=== PATIENT | female | born 1995 | race American Indian/Alaskan Native ===

== ENCOUNTER 2020-12-26 10:21 | Outpatient (CLI) | payer BC ==
[2020-12-26 11:02] LABS: Basophils # (Auto) 0.1 K/mm3 (0.0-0.1); Eosinophils # (Auto) 0.5 K/mm3 (0.0-0.4); Eosinophils % (Auto) 4.1 % (0.0-4.3); Hematocrit 37.4 % (30.3-42.9); Hemoglobin 12.9 gm/dl (10.1-14.3); Lymphocytes # (Auto) 2.2 K/mm3 (1.2-5.4); Lymphocytes % (Auto) 17.8 % (13.4-35.0); Mean Corpuscular HGB Conc 35 % (30-34); Mean Corpuscular Volume 92 fl (79-97); Monocytes # (Auto) 0.8 K/mm3 (0.0-0.8); Monocytes % (Auto) 6.1 % (0.0-7.3); Platelet Count 311 K/mm3 (140-440); Red Blood Count 4.09 M/mm3 (3.65-5.03); Red Cell Distribution Width 12.3 % (13.2-15.2)
[2020-12-26 13:24] LABS: Hepatitis C Virus Antibody Non-Reactive (NonReactive)
== END 2020-12-26 10:22 | disposition home or self-care (01) ==
LOC: LAB 10:21
PROVIDERS: ATTEND Obstetrics & Gynecology
DX: Z34.02 Encounter for supervision of normal first pregnancy, second trimester (principal); Z3A.13 13 weeks gestation of pregnancy
CPT/HCPCS: 36415; 85025; 86592; 86689; 86706; 86762; 86803; 86900; 86901

== ENCOUNTER 2021-06-03 14:52 | Outpatient (CLI) | payer BC, OTHER ==
[2021-06-15 00:13] LABS: HIV-1 Antibody Differentiation SEE SCANNED RESULT; HIV-2 Antibody Differentiation SEE SCANNED RESULT
== END 2021-06-03 14:53 | disposition home or self-care (01) ==
LOC: LAB 14:52
PROVIDERS: ATTEND Advanced Practice Midwife
DX: Z34.03 Encounter for supervision of normal first pregnancy, third trimester (principal); Z3A.36 36 weeks gestation of pregnancy
CPT/HCPCS: 36415; 86592; 86689; 87116; 87591

== ENCOUNTER 2021-06-22 08:55 | Inpatient (IN) | payer BC ==
[2021-06-22] MEDS ORDERED: CARBOPROST TROMETHAMINE 250 MCG/1 ML INJ IM PRN (10:04)
[2021-06-22] MEDS ORDERED: LACTATED RINGERS 1,000 ML ONE (10:04)
[2021-06-22] MEDS ORDERED: TERBUTALINE 1 MG/1 ML INJ SUB-Q PRN (10:04)
[2021-06-22] MEDS ORDERED: NALOXONE 0.4 MG/1 ML INJ IV PRN ×2 (10:04→14:54)
[2021-06-22] MEDS ORDERED: ACETAMINOPHEN 325 MG TAB PO PRN (10:04)
[2021-06-22] MEDS ORDERED: METHYLERGONOVINE MALEATE 0.2 MG/ML VIAL IM PRN (10:04)
[2021-06-22] MEDS ORDERED: NalbUPHINE 10 MG/1 ML INJ IV PRN (10:04)
[2021-06-22] MEDS ORDERED: ONDANSETRON 4 MG/2 ML INJ IV PRN ×2 (10:04→14:54)
[2021-06-22] MEDS ORDERED: PROMETHAZINE 25 MG TAB PO PRN (10:04)
[2021-06-22] MEDS ORDERED: LOPERAMIDE 2 MG CAP PO PRN (10:04)
[2021-06-22] MEDS ORDERED: MINERAL OIL 30 ML ORAL LIQD PO PRN (10:04)
[2021-06-22] MEDS ORDERED: OXYTOCIN 10 UNIT/1 ML INJ IM PRN (10:04)
[2021-06-22] MEDS ORDERED: miSOPROStol 200 MCG TAB PR PRN (10:04)
[2021-06-22] MEDS ORDERED: ePHEDrine SULFATE 50 MG/1 ML INJ IV PRN (10:04)
--- NOTE | 2021-06-22 10:16 | History and Physical Report ---
History of Present Illness Date of examination: 06/22/21 Date of admission: 06/22/21 08:55 Chief complaint: "They told me I was asymmetric IUGR and to come in this morning" History of present illness: EDC Confirmation: 06/29/2021 Past History : 1 Term Births: 0 Premature Births: 0 Living Children: 0 Para: 0 Mult. Births: 0 Prev : 0 Prev. attempt? 0 Aborta: 0 Elect. Ab: 0 Spont. Ab: 0 Ectopics: 0 Risk Factors: Smoked Tobacco Use: Never smoker Smokeless Tobacco Use: Never Passive smoke exposure: no Drug use: no HIV high-risk behavior: no Alcohol use: no Past Medical History: Reviewed history from 10/24/2020 and no changes required: Fibroids Past Surgical History: Reviewed history from 10/24/2020 and no changes required: negative Past Medical History Abnormal PAP: negative MARIYA Exposure: negative Infertility: negative Uterine Anomaly: positive Uterine Surgery (not C/S): negative Social Hx: Patient is single Smoking History: Patient has never smoked. Infection History Hx of STD: None HIV Risk Eval: no Hepatitis B Risk Eval: low risk Personal hx. of genital herpes: no Partner hx. of genital herpes: no Rash, Viral, or Febrile illness since last LMP? no TB Risk: no Genetic History Congenital Heart Defect: Mom: no Dad: no Segun Disease: Mom: no Dad: no Thalassemia Mom: no Dad: no Neural Tube Defect Mom: no Dad: no Down's Syndrome Mom: no Dad: no Ignacio-Sachs Mom: no Dad: no Sickle Cell Disease/Trait Mom: no Dad: no Hemophilia Mom: no Dad: no Muscular Dystrophy Mom: no Dad: no Cystic Fibrosis Mom: no Dad: no [place] Chorea Mom: no Dad: no Mental Retardation Mom: no Dad: no Fragile X Mom: no Dad: no Other Genetic/Chromosomal Disorder Mom: no Dad: yes Comments: cousin w/ unknown cause of delay Child w/other defect Mom: no Dad: no Enviromental Exposures Xray Exposure: no Medication, drug, or alcohol use since LMP: no Chemical/Other Exposure: no Exposure to Cat Liter: no Hx of Parvovirus (Fifth Disease): no Occupational Exposure to Children: none Current Allergies: No known allergies Past History Past Medical History: other (see HPI) Past Surgical History: other (see HPI) SHUTDOWN COORDINATOR History: other (see HPI) Family/Genetic History: other (see HPI) Social history: other (see HPI) - Obstetrical History Expected Date of Delivery: 06/29/21 Actual Gestation: 39 Week(s) 0 Day(s) : 1 Para: 0 Hx # Term Pregnancies: 0 Number of Pregnancies: 0 Spontaneous Abortions: 0 Induced : 0 Number of Living Children: 0 Medications and Allergies Allergies Allergy/AdvReac Type Severity Reaction Status Date / Time No Known Allergies Allergy Verified 06/22/21 09:34 Home Medications Medication Instructions Recorded Confirmed Last Taken Type [facility] Fish Oil 1,000 mg Softgel 1 tab PO DAILY 06/22/21 06/22/21 06/22/21 History One Daily Tablet 1 tab PO DAILY 06/22/21 06/22/21 06/22/21 History Review of Systems All systems: negative Genitourinary: contractions, no vaginal bleeding, no leakage of fluid, no genital sores - Vital Signs Vital signs: Vital Signs Pulse BP 97 H 113/73 06/22/21 09:29 06/22/21 09:29 Temp Pulse Resp BP Pulse Ox 98.6 F 77 20 113/73 99 06/22/21 09:37 06/22/21 10:05 06/22/21 09:37 06/22/21 09:29 06/22/21 10:05 - Physical Exam Breasts: Positive: deferred Cardiovascular: Regular rate Lungs: Positive: Normal air movement Abdomen: Positive: normal appearance, soft, other (gravid) Genitourinary (Female): Positive: normal external genitalia, normal perenium Vulva: both: normal Vagina: Positive: normal moisture Uterus: Positive: normal size, other (gravid) Anus/Rectum: Positive: normal perianal skin - Obstetrical FHR: category 2 Uterine Contraction Monitor Mode: External Cervical Dilatation: 0 (FT external os) Cervical Effacement Percentage: 50 (soft, posterior) station: -3 Uterine Contraction Pattern: Regular Uterine Tone Measurement Phase: Contraction Uterine Contraction Intensity: Mild Results Result Diagrams: 06/22/21 09:41 All other labs normal. Assessment and Plan 26y.o. @39wks EGDavid presents for IOL per AMFM recommendation d/t asymmetric IUGR. POC d/w pt and RN at bedside. Cat 2 FHT's strip reviewed and discussed. Pt denies VB, LOF, and feeling regular contractions. Reports +FM. Questions encouraged and answered. Pt verbalizes understanding and agrees to POC. Admit to labor. Start IV with 500ml LR bolus. Continuous efm and toco monitoring. Notify provider with any changes in status. Dr. Martin and Dr. Dunham made aware. - Patient Problems (1) 39 weeks gestation of Current Visit: Yes Status: Acute (2) Encounter for induction of labor Current Visit: Yes Status: Acute (3) Asymmetric IUGR affecting , antepartum Current Visit: Yes Status: Acute
[2021-06-22 10:28] LABS: Hematocrit 36.4 % (30.3-42.9); Hemoglobin 12.4 gm/dl (10.1-14.3); Mean Corpuscular HGB Conc 34 % (30-34); Mean Corpuscular Volume 94 fl (79-97); Platelet Count 297 K/mm3 (140-440); Red Blood Count 3.88 M/mm3 (3.65-5.03); Red Cell Distribution Width 13.8 % (13.2-15.2)
[2021-06-22] MEDS ORDERED: OXYTOCIN DRIP 30 UNITS/500 ML BAG IV SCH ×3 (11:00→15:00)
[2021-06-22] MEDS ORDERED: LIDOCAINE (2%) 20 MG/1 ML VIAL 20 ML MDV INFILTRATI ONE (11:00)
[2021-06-22] MEDS ORDERED: METOCLOPRAMIDE 10 MG/2 ML INJ ONE (12:16)
[2021-06-22] MEDS ORDERED: BICITRA ORAL LIQD 30ML PO ONE (12:16)
[2021-06-22] MEDS ORDERED: METOCLOPRAMIDE 10 MG/2 ML INJ IV ONE (12:16)
[2021-06-22] MEDS ORDERED: BICITRA ORAL LIQD 30ML ONE (12:16)
[2021-06-22] MEDS ORDERED: FAMOTIDINE 20 MG/2 ML INJ IV ONE ×2 (12:16→12:17)
[2021-06-22] MEDS ORDERED: ceFAZolin/Water 2 GM/20 ML 2 GM/20 ML SYRINGE IV ONE (12:17)
--- NOTE | 2021-06-22 12:24 | Event Note ---
Date: 06/22/21 discussed CAT 2 tracing with patient; baby is CAT 2 with ctx that are mild and not felt by patient. Concerns reviewed with pt, s/o and pt's mother that use of pitocin/cervidil/cytotec is not indicated d/t late decels and will likely cause baby further distress potentially needing a STAT c/s. pt agreed that she would rather proceed with non-emergent c/s now. Dr. Martin and Anesthesia aware. Pre-op orders in EMR.
[2021-06-22] MEDS ORDERED: LACTATED RINGERS 1,000 ML IV SCH (12:30)
--- NOTE | 2021-06-22 12:33 | Anesthesia Consultation ---
Anesthesia Consult and Med Hx Date of service: 06/22/21 - Airway Anesthetic Teeth Evaluation: Good ROM Head & Neck: Adequate Mental/Hyoid Distance: Adequate Mallampati Class: Class II Intubation Access Assessment: Probably Good - Pulmonary Exam CTA: Yes - Cardiac Exam Cardiac Exam: RRR - Pre-Operative Health Status ASA Pre-Surgery Classification: ASA2, Emergency Proposed Anesthetic Plan: Spinal - Pulmonary Hx Asthma: No - Cardiovascular System Hx Hypertension: No - Central Nervous System Hx Seizures: No Hx Psychiatric Problems: No - Endocrine Hx Renal Disease: No Hx Hypothyroidism: No Hx Hyperthyroidism: No - Hematic Hx Anemia: No Hx Sickle Cell Disease: No - Other Systems Hx Alcohol Use: No
--- NOTE | 2021-06-22 12:34 | Anesthesia Day of Surgery ---
Anesthesia Day of Surgery - Day of Surgery Patient Examined: Yes Patient H&P Reviewed: Yes Patient is NPO: No (ate heavy meal 5 hours prior)
[2021-06-22] MEDS ORDERED: MORPHINE PF 10MG/10 ML AMPULE ONE (12:41)
[2021-06-22] MEDS ORDERED: KETOROLAC 30 MG/1 ML INJ ONE (12:42)
[2021-06-22] MEDS ORDERED: dexAMETHasone 20 MG/5 ML VIAL ONE (12:42)
[2021-06-22] MEDS ORDERED: BUPIVACAINE/PF (0.5%) 5 MG/1 ML 30 ML VIAL INFILTRATI ONE (12:42)
[2021-06-22] MEDS ORDERED: LIDOCAINE MPF (2%) 20 MG/1 ML VIAL 5 ML ONE (12:42)
[2021-06-22] MEDS ORDERED: SODIUM BICARB 8.4% 50 MEQ/50 ML VIAL IV ONE (12:42)
[2021-06-22] MEDS ORDERED: ONDANSETRON 4 MG/2 ML INJ ONE (12:42)
[2021-06-22] MEDS ORDERED: ceFAZolin/Water 2 GM/20 ML 2 GM/20 ML SYRINGE IV NR (13:00)
[2021-06-22] MEDS ORDERED: ceFAZolin/STERILE WATER 2 GM/20 ML SYRINGE IV ONE (13:18)
[2021-06-22] MEDS ORDERED: SODIUM CHLORIDE 0.9% IRR 1,500 ML BOTTLE IR ONE (13:40)
[2021-06-22] MEDS ORDERED: WATER FOR IRRIG STERILE 1,500 ML BOTTLE IR ONE (13:40)
[2021-06-22] MEDS ORDERED: PHENYLEPHRINE/NS 1,000 MCG/10 ML SYRINGE (OR USE) IV ONE (14:14)
[2021-06-22] MEDS ORDERED: HYDROmorphone 1 MG/1 ML INJ IV PRN (14:54)
[2021-06-22] MEDS ORDERED: WITCH HAZEL/ GLYCERIN PAD TP PRN (14:54)
[2021-06-22] MEDS ORDERED: SIMETHICONE 80 MG CHEW TAB PO PRN (14:54)
[2021-06-22] MEDS ORDERED: LANOLIN/ZINC/DIMETHICONE (LANSINOH) 7 GM TP PRN (14:54)
--- NOTE | 2021-06-22 15:04 | Post Operative Note ---
Pre-op diagnosis: IUP at 39 weeks, Asymmetric IUGR, Nonreassuring heart tones Post-op diagnosis: same Findings: Viable 2640 g male, APGARs 8/9. Uterus with multiple fibroids includin cm right posterior fibroid, 4 cm posterior fibroid, multiple subserosal fibroids near the fundus all less than 2 cm. Bilateral fallopian tubes and ovaries normal in appearance. Procedure: Primary low transverse section Anesthesia: spinal Surgeon: JOEL SCHNEIDER Nut Orchardist: ROJAS GOMEZ Estimated blood loss: other (QBL 475 ml) Pathology: none (placenta) Specimen disposition: to lab Condition: stable Disposition: PACU
--- NOTE | 2021-06-22 15:13 | Progress Note ---
Spinal Anesthesia Block - Spinal Anesthesia Block Start Time: 13:20 Stop Time: 13:22 Performed by:: DOM ORTA Procedure: Sitting, sterile chlorahexadine 0.5% prep/drape, 2% lidocaine + bicarb skin local, 25G spinal needle + introducer at L3-4, + CSF, - Heme, [1.9 ml 0.5% bupivacaine + 10 mcg dexmedetomidine + duramorph 0.1 mg] injected, drape removed, patient positioned supine with left uterine displacement, and spinal level verified to be adequate prior to surgery.
[2021-06-22] MEDS ORDERED: ePHEDrine SULFATE 50 MG/1 ML INJ ONE (15:19)
[2021-06-22] MEDS: LACTATED RINGERS 1,000 ML IV SCH ×2 (15:40→16:48)
--- NOTE | 2021-06-22 16:19 | Operative Report ---
Operative Report Operative Report: Operative Report: Preoperative diagnosis: IUP @ 39 weeks, asymmetric IUGR, non-reassuring heart tones Postoperative diagnosis: same, s/p PLTCS Procedure: Primary Low Transverse Section Surgeon: Pita Martin MD Clerical Transcriber: Dalila Myers CNM Anesthesia: spinal Complications: none QBL: 475 ml IV Fluids:1500 ml UOP: 300 ml, clear urine at the end of procedure Indications: non-reassuring heart tones Findings: 2640 g female infant in LOP position cephalic presentation with Apgars 8 & 9 Amniotic fluid clear Uterus with multiple subserosal fibroids, a 6 cm right posterior fibroid, 4 cm posterior fibroid Fallopian tubes normal in appearance Ovaries Normal in appearance Procedure: The patient was taken to the operating room where epidural anesthesia was found to be adequate. She was then prepped and draped in the usual sterile fashion in the dorsal supine position with a leftward tilt. 2 g Ancef was given prior to the procedure. A Pfannenstiel skin incision was made with the scalpel and carried through to the underlying layer of fascia with the bovie. The fascia was incised in the midline and the incision extended laterally. The superior aspect of the fascial incision was then grasped with the Sade's clamps, e levated, and the underlying rectus muscles dissected off bluntly and with sharp dissection using bovie. Attention was then turned to the inferior aspect of this incision which, in a similar fashion, was grasped, tented up with the Sade clamps, and the rectus was dissected off bluntly and with sharp dissection. The rectus muscles were then in the midline, and the peritoneum identified, tented up and entered sharply with the Metzenbaum scissors. The peritoneal incision was then extended superiorly and inferiorly with good visualization of the bladder. The bladder blade was then inserted and the vesicouterine peritoneum identified, grasped with the pick ups, and entered sharply with the Metzenbaum scissors. This incision was then extended laterally and the bladder flap created digitally. The bladder blade was then reinserted and the lower uterine segment incised in a transverse fashion with the scalpel. The uterine incision was then extended laterally digitally. The bladder blade was then removed and the infant was delivered. The nose and mouth were suctioned with the bulb suction and the cord clamped and cut. The infant was handed off to the waiting pediatric team. The placenta was then removed; the uterus exteriorized and cleared of all clots and debris. The uterine incision was repaired with 0 vicryl in a running locked fashion to obtain excellent hemostasis. An imbrication layer with 0 vicryl done given excellent hemostasis. Uterus returned to the abdomen. Slight oozing noted, controlled with pressure. Surgicel powder applied. Good hemostasis noted. The Peritoneum closed with 2-0 vicryl. A figure of eight stitch of 2-0 Vicryl was placed to reapproximate the rectus muscle. The fascia was reapproximated with 0 vicryl in a running fashion. Subcutaneous layer reapproximated with interrupted sutures of 2-0 vicryl. The skin was closed with 4-0 monocryl in a subcuticular fashion and the incision sealed with Steri-strips.The patient tolerated the procedure well. Sponge, lap, needle counts correct X 3. The patient was taken to the recovery room in a stable condition.
[2021-06-22 16:30] LABS: Hematocrit 31.5 % (30.3-42.9); Hemoglobin 11.1 gm/dl (10.1-14.3)
--- NOTE | 2021-06-22 20:39 | Ultrasound Report ---
ULTRASOUND OBSTETRIC LIMITED INDICATION / CLINICAL INFORMATION: efw and presentation. Clinical Gestational Age (GA) in weeks, days: 40, 1 TECHNIQUE: Transabdominal. COMPARISON: None available. FINDINGS: HEART RATE (beats per minute): 140 PRESENTATION: Cephalic. Biparietal Diameter = 9.3 cm = 38, 0 weeks, days Head Circumference = 33.4 cm = 38, 1 weeks, days Abdominal Circumference = 32.7 cm = 36, 5 weeks, days Femur Length = 7.3 cm = 37, 1 weeks, days Average Ultrasound Age (AUA) = 37, 4 weeks, days There is a posterior placenta ADDITIONAL FINDINGS: None. IMPRESSION: 1. No significant abnormality. Signer Name: Cole Robertson DO Signed: 06/22/2021 8:35 PM Workstation Name: [id number]
[2021-06-22] MEDS: KETOROLAC 30 MG/1 ML INJ IV SCH (21:09)
[2021-06-22] MEDS ORDERED: diphenhydrAMINE 25 MG CAP PO ONE (23:25)
[2021-06-23] MEDS: KETOROLAC 30 MG/1 ML INJ IV SCH ×2 (02:38→09:23)
[2021-06-23 05:35] LABS: Hematocrit 34.9 % (30.3-42.9); Hemoglobin 11.3 gm/dl (10.1-14.3)
[2021-06-23] MEDS: oxyCODONE /ACETAMINOPHEN 5-325MG TAB PO PRN ×3 (06:44→21:51)
--- NOTE | 2021-06-23 08:39 | Progress Note ---
Assessment and Plan Pt doing well, s/o at bs assisting with care. VSSAF, H&H 11.3/34.9, lochia scant, fundus firm, , dressing D&I - Patient Problems (1) delivery delivered Current Visit: Yes Status: Acute Plan to address problem: continue postop pathway Shower and remove dressing in shower. Anticipate d/c home tomorrow if stable. Subjective - Subjective Date of service: 06/23/21 Principal diagnosis: postop day #1 s/p primary c/s NRFHT Patient reports: appetite normal, voiding normally, pain well controlled, flatus, ambulating normally, no dizzy ambulation, no nauseated : doing well, nursing well Objective - Vital Signs Latest vital signs: Vital Signs Temp Pulse Resp BP Pulse Ox Pulse Ox 06/23/21 07:53 98.3 F 89 20 95/55 95 06/23/21 06:44 16 06/23/21 05:52 98.5 F 89 18 104/63 96 06/23/21 03:08 18 06/23/21 02:38 98.7 F 83 18 117/64 98 06/22/21 21:23 98.1 F 74 18 129/73 99 06/22/21 20:30 99 06/22/21 17:48 17 126/69 06/22/21 17:35 99 06/22/21 17:10 77 18 108/68 98 06/22/21 16:55 76 13 102/44 98 06/22/21 16:45 73 20 102/57 99 06/22/21 16:35 79 13 100/47 98 06/22/21 16:25 97.5 F L 75 10 L 95/56 98 06/22/21 16:15 67 16 102/52 98 06/22/21 16:05 74 14 97/42 95 06/22/21 16:00 78 14 88/43 95 06/22/21 15:55 74 15 92/42 96 06/22/21 15:45 79 13 92/51 97 06/22/21 15:40 79 12 84/44 96 06/22/21 15:35 76 12 89/42 97 06/22/21 15:30 96.0 F L 74 13 85/33 97 06/22/21 15:25 69 10 L 80/36 97 06/22/21 15:20 83 13 70/37 97 06/22/21 15:17 81 18 85/40 96 06/22/21 15:05 80 13 90/42 96 06/22/21 15:01 97.4 F L 77 13 93/42 97 06/22/21 13:10 89 98 06/22/21 13:05 90 99 06/22/21 12:56 84 98 06/22/21 12:51 101 H 129/72 98 06/22/21 12:22 95 H 100 06/22/21 12:17 98 H 100 06/22/21 12:12 87 100 06/22/21 12:07 75 98 06/22/21 12:04 97 H 90 06/22/21 12:02 89 97 06/22/21 11:57 113 H 100 06/22/21 11:52 85 98 06/22/21 11:47 89 98 06/22/21 11:42 89 97 06/22/21 11:37 88 99 06/22/21 11:32 97 H 98 06/22/21 11:27 89 121/71 99 06/22/21 11:21 92 H 98 06/22/21 11:16 87 98 06/22/21 11:11 92 H 99 06/22/21 11:06 96 H 99 06/22/21 11:01 85 99 06/22/21 10:56 98 H 99 06/22/21 10:51 94 H 99 06/22/21 10:46 86 98 06/22/21 10:41 81 100 06/22/21 10:36 89 100 06/22/21 10:31 78 100 06/22/21 10:26 78 100 06/22/21 10:20 87 99 06/22/21 10:15 81 98 06/22/21 10:10 87 99 06/22/21 10:05 77 99 06/22/21 10:00 88 99 06/22/21 09:55 97 H 99 06/22/21 09:50 100 H 99 06/22/21 09:45 87 97 06/22/21 09:42 98 06/22/21 09:40 90 98 06/22/21 09:37 98.6 F 20 98 06/22/21 09:35 90 98 10/03/21 09:30 105 H 98 06/22/21 09:29 97 H 113/73 Intake and Output 06/22/21 06/23/21 06/23/21 23:59 07:59 15:59 Intake Total 4400 240 Output Total 1550 2550 Balance 2850 -2310 Intake: IV 2400 Lactated Ringers 1,000 ml 1000 @ 125 mls/hr IV DIRECT LUIS F Rx#:[id number] Oral 2000 Intake, Free Water 240 Output: Urine 1550 2550 Indwelling Catheter 1000 1100 Uretheral (Brady) 450 1100 Void 350 Other: Total, Intake Amount 1000 Total, Output Amount 700 250 # Voids Void 1 - Exam Breasts: Present: normal, Cardiovascular: Present: Regular rate Lungs: Present: Clear to auscultation, Normal air movement Abdomen: Present: normal appearance, soft Vulva: both: normal Uterus: Present: normal, firm, fundal height below umbilicus Extremities: Present: normal Deep Tendon Reflex Grade: Normal +2 Incision: Present: normal, dry, dressed - Labs Labs: Abnormal lab results 06/22/21 Range/Units 09:41 WBC 17.1 H (4.5-11.0) K/mm3
--- NOTE | 2021-06-23 10:16 | Post Anesthesia Evaluation ---
- Post Anesthesia Evaluation Patient Participated: Yes Airway Patent: Yes Stable Respiratory Function: Yes Nausea/Vomiting: No Temp > 96.8F: Yes Pain Manageable: Yes Adequeate Hydration: Yes Anesthesia Complications: No Block Receding Appropriately: Yes
[2021-06-24] MEDS: IBUPROFEN 800 MG TAB PO SCH ×5 (00:11→17:44)
[2021-06-24] MEDS: oxyCODONE /ACETAMINOPHEN 5-325MG TAB PO PRN (06:23)
--- NOTE | 2021-06-24 08:43 | Progress Note ---
Assessment and Plan Pt doing well, s/o at assisting with care. VSSAF, H&H 11.3/34.9, lochia scant, fundus firm, , incision D&I. pt using abdominal binder and request compression hose for feet swelling. reviewed expectations of swelling after c/s. all questions addressed. - Patient Problems (1) delivery delivered Current Visit: Yes Status: Acute Plan to address problem: continue postop pathway Pt requesting to stay another day Anticipate d/c home tomorrow if stable. Subjective - Subjective Date of service: 06/24/21 Principal diagnosis: postop day #2 s/p primary c/s NRFHT Patient reports: appetite normal, voiding normally, pain well controlled, flatus, ambulating normally, no dizzy ambulation, no nauseated [place]: doing well, nursing well Objective - Vital Signs Latest vital signs: Vital Signs Temp Pulse Resp BP BP Pulse Ox Pulse Ox 06/24/21 08:12 98.1 F 91 H 18 106/59 95 06/24/21 07:23 18 06/24/21 06:43 18 06/24/21 06:23 18 06/24/21 01:26 18 06/24/21 00:50 98.2 F 99 H 20 110/64 98 06/24/21 00:26 18 06/23/21 22:51 18 06/23/21 21:51 18 06/23/21 20:02 100 06/23/21 16:33 98.9 F 105 H 20 103/55 97 06/23/21 16:18 100 06/23/21 14:00 100 06/23/21 12:01 98.5 F 104 H 20 94/51 95 06/23/21 12:00 100 06/23/21 09:25 100 06/23/21 09:23 16 Intake and Output 06/23/21 06/24/21 06/24/21 23:59 07:59 15:59 Intake Total 960 480 120 Balance 960 480 120 Intake: Oral 960 480 120 Other: Total, Intake Amount 240 240 120 # Voids Void 1 1 - Exam Breasts: Present: normal, Cardiovascular: Present: Regular rate Lungs: Present: Clear to auscultation, Normal air movement Abdomen: Present: normal appearance, soft, normal bowel sounds Vulva: both: normal Uterus: Present: normal, firm, fundal height at umbilicus Extremities: Present: edema (1+, nonpitting) Incision: Present: normal, dry, intact
[2021-06-24] MEDS: DOCUSATE SODIUM 100 MG CAP PO SCH (21:18)
[2021-06-25] MEDS: IBUPROFEN 800 MG TAB PO SCH ×3 (00:24→09:27)
[2021-06-25] MEDS: DOCUSATE SODIUM 100 MG CAP PO SCH (09:23)
--- NOTE | 2021-06-25 12:28 | Discharge Summary ---
Providers - Providers Date of Admission: 06/22/21 08:55 Date of discharge: 06/25/21 Attending physician: JOEL SCHNEIDER MD Primary care physician: JOEL SCHNEIDER MD Hospitalization Reason for admission: induction of labor Delivery: Procedure: primary low transverse Episiotomy: none Laceration: none Incision: normal, dry, intact Other procedures: none complications: none Discharge diagnosis: IUP at term delivered baby: female Hospital course: S: Pt doing well. Ambulating, voiding, and passing flatus okay. BC: Undecided. O: VSS. H/H 11.3/34.9. Incision open to air, steri strips intact, no drainage, no s/sx of infection noted. A: 26 y.o. s/p primary , POD #3, in good condition and can be discharged home. P: Discharge home with instructions. Pt to schedule incision check in the office in 1 week. Condition at discharge: Good Disposition: 01 HOME / SELF CARE / HOMELESS Plan - Discharge Medications Prescriptions: Docusate Sodium [Colace] 100 mg PO BID #60 capsule Lidocain2.5%/Prilocai2.5% [Emla] 1 applic TP ONCE #1 tube Ferrous Sulfate [Feosol 325 MG tab] 325 mg PO QDAY #30 tablet Ibuprofen [Motrin 800 MG tab] 800 mg PO Q8HR #30 tablet oxyCODONE /ACETAMINOPHEN [Percocet 5/325] 1 tab PO Q6HR PRN #20 tablet PRN Reason: Pain - Provider Discharge Summary Activity: routine, no sex for 6 weeks, no heavy lifting 4 weeks, no strenuous exercise Diet: routine Instructions: routine Additional instructions: [] Smoking cessation referral if applicable(refer to patient education folder for contact #) [] Refer to [facility] Booklet Call your doctor immediately for: * Fever > 100.5 * Heavy vaginal bleeding ( >1 pad per hour) * Severe persistent headache * Shortness of breath * Reddened, hot, painful area to leg or breast * Drainage or odor from incision. * Keep incision clean and dry at all times and follow doctor's instructions regarding bathing/showering Congratulations on your baby boy!! Thank you for allowing us to take care of you. Please schedule your son's circumcision in our office in 1 week. You have been prescribed EMLA cream for your son's circumcision. Please do not use this cream at home but bring it with you to his circumcision. Should you have any questions or concerns after discharge, please do not hesitate to call the office at [phone]. - Follow up plan Follow up: JOEL SCHNEIDER MD [Primary Care Provider] - 7 Days
[2021-06-25 12:40] VITALS: BP 113/63
== END 2021-06-25 15:57 | disposition home or self-care (01) | DRG 788 ==
LOC: LD 08:55 → OB 17:20
PROVIDERS: ADMIT Student in an Organized Health Care Education/Training Program; ATTEND Student in an Organized Health Care Education/Training Program
PROC: 10D00Z1 Extraction of Products of Conception, Low, Open Approach (ICD-10-PCS; principal; 2021-06-22)
DX: O76 Abnormality in fetal heart rate and rhythm complicating labor and delivery (principal); O36.5930 Maternal care for other known or suspected poor fetal growth, third trimester, not applicable or unspecified; Z37.0 Single live birth; Z3A.39 39 weeks gestation of pregnancy; Z20.822 Contact with and (suspected) exposure to COVID-19; O34.13 Maternal care for benign tumor of corpus uteri, third trimester; D25.9 Leiomyoma of uterus, unspecified
CPT/HCPCS: 36415; 76816; 85014; 85018; 85027; 86592; 86850; 86900; 86901; 88307; 99211; G0378; G0463; J0690; J1100; J1885; J2274; J2370; J2405; J2765; J3490; J7120; U0003